=== PATIENT | male | born 1950 | race Two or more races ===

== ENCOUNTER 2024-12-28 13:51 | Inpatient (IN) | payer OTHER ==
[~2024-12-28] VITALS: Ht 175.3 cm; Wt 108.4 kg
[2024-12-28 14:30] LABS: PLATELET COUNT (AUTO) 199 K/uL (150-450); RED BLOOD CELL COUNT(AUTO) 5.34 MIL/uL (4.5-6.0); RED CELL DISTRIBUTION WIDTH 15.6 % (11.5-15.0); WHITE BLOOD COUNT (AUTO) 15.0 K/uL (4.3-11.0)
[2024-12-28 14:38] LABS: CALCIUM, SERUM 8.7 mg/dL (8.5-10.1); CREATININE 1.2 mg/dL (0.6-1.3); SODIUM SERUM 146 mmol/L (136-145); UREA NITROGEN, BLOOD 34 mg/dL (7-18)
[2024-12-28 14:44] LABS: ASPARTATE AMINOTRANSFERASE 306 U/L (15-37); TOTAL PROTEIN, SERUM 6.8 g/dL (6.4-8.2)
[2024-12-28] MEDS ORDERED: OMEP20TA5 PO (15:14)
[2024-12-28] MEDS ORDERED: TERA5CAP7 PO (15:15)
[2024-12-28] MEDS ORDERED: ATOR40TA PO (15:15)
[2024-12-28] MEDS ORDERED: EMPA25TA PO (15:15)
[2024-12-28] MEDS ORDERED: NPH,100I SQ (15:15)
[2024-12-28] MEDS ORDERED: METF-442 PO (15:15)
[2024-12-28] MEDS ORDERED: FURO40TA5 PO (15:15)
[2024-12-28] MEDS ORDERED: APIX5TAB PO (15:15)
[2024-12-28] MEDS ORDERED: LOSA50TA39 PO (15:15)
[2024-12-28] MEDS ORDERED: TRIA1TAB3 PO (15:15)
[2024-12-28] MEDS ORDERED: ENOXAPARIN SODIUM 100 MG/ML DISP.SYRIN SQ ONE (15:28)
[2024-12-28] MEDS: ENOXAPARIN SODIUM 100 MG/ML DISP.SYRIN SQ ONE (15:33)
[2024-12-28] MEDS: CEFEPIME 1 GM in IV D5W 50 ML IV ONE (15:40)
[2024-12-28 15:47] LABS: NT-PRO BNP 4352 pg/mL (0-125)
[2024-12-28 16:09] LABS: APPEARANCE,URINE CLEAR (CLEAR); BLOOD, URINE 3+ Ery/uL (NEGATIVE); LEUKOCYTE ESTERASE ,URINE NEGATIVE (NEGATIVE); NITRITE, URINE NEGATIVE (NEGATIVE); UGLUCOSE TRACE mg/dL (NEGATIVE)
[2024-12-28] MEDS: VANCOMYCIN 1 GM in IV D5W 250 ML IV ONE (16:24)
[2024-12-28 17:07] LABS: ADD URINE CULTURE YES
[2024-12-28 17:08] LABS: URINE AMORPHOUS URATE Few /HPF (None Seen)
[2024-12-28] MEDS ORDERED: DOSING PER PHARMACY-VANCOMYCIN IV XX PRN (17:30)
[2024-12-28] MEDS ORDERED: MAG HYDROX/AL HYDROX/SIMETH 30 ML UDC PO PRN (17:30)
[2024-12-28] MEDS ORDERED: MAGNESIUM HYDROXIDE 30 ML UDC PO PRN (17:30)
[2024-12-28] MEDS ORDERED: DOSING PER PHARMACY-CEFEPIME IVPB XX PRN (17:30)
[2024-12-28] MEDS ORDERED: ALBUTEROL FS 2.5 MG/3 ML VIAL.NEB NEB PRN (17:30)
[2024-12-28] MEDS ORDERED: ONDANSETRON HCL/PF 4 MG/2 ML VIAL IVP PRN (17:30)
[2024-12-28] MEDS ORDERED: ACETAMINOPHEN 325 MG TABLET PO PRN (17:30)
[2024-12-28 18:07] VITALS: BP 143/61; TEMP 98.8; O2SAT 94
[2024-12-28 20:00] VITALS: BP 132/73; TEMP 98.4; O2SAT 98
[2024-12-28] MEDS: IV NS 0.9% 1,000 ML IV PRN (20:37)
[2024-12-28] MEDS: VANCOMYCIN 500 MG in IV D5W 100ml IV ONE (20:46)
[2024-12-28] MEDS: TERAZOSIN HCL 5 MG CAPSULE PO SCH (21:05)
[2024-12-28] MEDS ORDERED: DEXTROSE 50%-WATER 50 ML DISP.SYRIN IV PRN (21:30)
[2024-12-28] MEDS: BLOOD SUGAR DIAGNOSTIC 1 EACH STRIP IN SCH (21:31)
[2024-12-28] MEDS: INSULIN REGULAR, HUMAN 100 UNIT/ML 3 ML VIAL SQ PRN (21:32)
[2024-12-29] VITALS: BP 145/67; TEMP 98.2; O2SAT 96
[2024-12-29 04:00] VITALS: BP 151/98; TEMP 98.6; O2SAT 99
[2024-12-29] MEDS: CEFEPIME 2 GM in IV D5W 100 ML IV SCH (04:13)
[2024-12-29] MEDS: PANTOPRAZOLE 40 MG TABLET.DR PO SCH (06:51)
[2024-12-29 08:00] VITALS: BP 148/68; TEMP 97.6; O2SAT 95
[2024-12-29] MEDS: POTASSIUM CHLORIDE 20 MEQ TAB.PRT.SR PO SCH (08:50)
[2024-12-29] MEDS: FUROSEMIDE 40 MG/4 ML VIAL IV SCH (08:50)
[2024-12-29] MEDS: ATORVASTATIN 40 MG TABLET PO SCH (08:51)
[2024-12-29] MEDS: METFORMIN 500 MG TABLET PO SCH (08:51)
[2024-12-29] MEDS: LOSARTAN POTASSIUM 50 MG TABLET PO SCH (08:51)
[2024-12-29] MEDS: APIXABAN 5 MG TABLET PO SCH (08:52)
[2024-12-29] MEDS: EMPAGLIFLOZIN 25 MG TABLET PO SCH (08:56)
[2024-12-29] MEDS ORDERED: FUROSEMIDE 40 MG TABLET PO SCH (09:00)
[2024-12-29] MEDS ORDERED: MAXZIDE TABLET 1 UDTAB TABLET PO SCH (09:00)
[2024-12-29] MEDS: INSULIN NPH, HUMAN ISOPHANE 100 UNIT/ML VIAL SQ SCH (09:00)
[2024-12-29 09:12] LABS: PLATELET COUNT (AUTO) 192 K/uL (150-450); RED BLOOD CELL COUNT(AUTO) 4.97 MIL/uL (4.5-6.0); RED CELL DISTRIBUTION WIDTH 15.1 % (11.5-15.0); WHITE BLOOD COUNT (AUTO) 10.5 K/uL (4.3-11.0)
[2024-12-29] MEDS: VANCOMYCIN 750 MG in IV D5W 250 ML IV SCH (09:22)
[2024-12-29 10:43] LABS: CALCIUM, SERUM 8.4 mg/dL (8.5-10.1); CREATININE 1.2 mg/dL (0.6-1.3); PHOSPHORUS 2.9 mg/dL (2.5-4.9); SODIUM SERUM 148.0 mmol/L (136-145); UREA NITROGEN, BLOOD 29.0 mg/dL (7-18)
[2024-12-29 12:00] VITALS: BP 147/63; TEMP 98.4; O2SAT 95
[2024-12-29 16:00] VITALS: BP 131/67; TEMP 97.9; O2SAT 95
[2024-12-29 20:00] VITALS: BP 126/64; TEMP 98.6; O2SAT 95
[2024-12-30] VITALS: BP 102/60; TEMP 98.2; O2SAT 96
[2024-12-30 04:00] VITALS: BP 122/75; TEMP 99; O2SAT 98
[2024-12-30 06:40] LABS: PLATELET COUNT (AUTO) 206 K/uL (150-450); RED BLOOD CELL COUNT(AUTO) 5.21 MIL/uL (4.5-6.0); RED CELL DISTRIBUTION WIDTH 15.0 % (11.5-15.0); WHITE BLOOD COUNT (AUTO) 11.2 K/uL (4.3-11.0)
[2024-12-30 07:04] LABS: ASPARTATE AMINOTRANSFERASE 99.0 U/L (15-37); CALCIUM, SERUM 8.8 mg/dL (8.5-10.1); CREATININE 1.6 mg/dL (0.6-1.3); PHOSPHORUS 3.7 mg/dL (2.5-4.9); SODIUM SERUM 146.0 mmol/L (136-145); TOTAL PROTEIN, SERUM 6.4 g/dL (6.4-8.2); UREA NITROGEN, BLOOD 40.0 mg/dL (7-18)
[2024-12-30 08:00] VITALS: BP 98/59; TEMP 97.5; O2SAT 98
[2024-12-30 10:04] VITALS: BP 148/57
[2024-12-30 16:00] VITALS: BP 126/51; TEMP 98.6; O2SAT 96
== END 2024-12-30 16:50 | disposition short-term general hospital (02) | DRG 280 ==
LOC: ER 13:55 → TELE1 17:08 → MEDSG1 12-30 09:44
PROVIDERS: ADMIT Nurse Practitioner Family; ATTEND Nurse Practitioner Acute Care
DX: I11.0 Hypertensive heart disease with heart failure (principal); I50.33 Acute on chronic diastolic (congestive) heart failure; I21.A1 Myocardial infarction type 2; G93.40 Encephalopathy, unspecified; E44.1 Mild protein-calorie malnutrition; E86.0 Dehydration; L03.115 Cellulitis of right lower limb; K76.1 Chronic passive congestion of liver; E88.09 Other disorders of plasma-protein metabolism, not elsewhere classified; L03.116 Cellulitis of left lower limb; N17.9 Acute kidney failure, unspecified; Z79.01 Long term (current) use of anticoagulants; G20.A1 Parkinson's disease without dyskinesia, without mention of fluctuations; G30.9 Alzheimer's disease, unspecified; E11.9 Type 2 diabetes mellitus without complications; E66.9 Obesity, unspecified; F02.80 Dementia in other diseases classified elsewhere, unspecified severity, without behavioral disturbance, psychotic disturbance, mood disturbance, and anxiety; F01.50 Vascular dementia, unspecified severity, without behavioral disturbance, psychotic disturbance, mood disturbance, and anxiety; Z91.81 History of falling; Z79.4 Long term (current) use of insulin; Z79.84 Long term (current) use of oral hypoglycemic drugs; Z79.899 Other long term (current) drug therapy; R74.01 Elevation of levels of liver transaminase levels; E78.5 Hyperlipidemia, unspecified; E80.6 Other disorders of bilirubin metabolism; R94.6 Abnormal results of thyroid function studies; Z86.73 Personal history of transient ischemic attack (TIA), and cerebral infarction without residual deficits; S90.112A Contusion of left great toe without damage to nail, initial encounter; Z86.718 Personal history of other venous thrombosis and embolism; S90.111A Contusion of right great toe without damage to nail, initial encounter; X58.XXXA Exposure to other specified factors, initial encounter; Y92.9 Unspecified place or not applicable; Z68.35 Body mass index [BMI] 35.0-35.9, adult; R60.9 Edema, unspecified
CPT/HCPCS: 36415; 70450-TC; 71045-TC; 71250-TC; 80048-TC; 80053-TC; 80076-TC; 81001; 82550-TC; 82962-TC; 83735-TC; 83880; 84100-TC; 84439-TC; 84443-TC; 84484-TC; 85025-TC; 87040-TC; 87081-TC; 87086-TC; 93307-TC; 93970-TC; A4223; G0378; J0692; J1650; J1815; J1938; J3373; J3374; J7030; J7060